=== PATIENT | male | born 1935 | race Caucasian/White ===

== ENCOUNTER 2019-11-23 09:05 | Emergency (ER) | payer MEDICARE, SELFPAY ==
--- NOTE | 2019-11-23 10:11 | EDM.PDOC ---
ED HPI GENERAL MEDICAL PROBLEM - General Chief Complaint: General Stated Complaint: SPEECH SLOW, GETTING SLOWER Time Seen by Provider: 11/23/19 09:45 Source of Information: Reports: Patient History Limitations: Reports: No Limitations - History of Present Illness INITIAL COMMENTS - FREE TEXT/NARRATIVE: Patient states over the last couple of weeks he has been having generalized increased weakness not moving as well as he used to. He has daughters and grandchildren visited this weekend and told him that his color did not look well. He tried calling the clinic to get him this morning but could not secondary to no appointments. He states he cannot pinpoint any one single thing but overall he just feels weak. He takes no medications just [id number] vitamins he does have a history of a bleeding ulcer about 8 years ago which was treated with medication. As he has been eating and drinking normal but only drinking about 2 quarts of water a day and states he probably needs to drink more. He states he is not as active now as he was 6 months ago he tends to take a nap every day that last maybe 30 minutes to an hour which used to he only took 15 to 30 minutes - Related Data Allergies Allergy/AdvReac Type Severity Reaction Status Date / Time ibuprofen AdvReac Bleeding Verified 05/16/17 14:51 NSAIDS (Non-Steroidal AdvReac Bleeding Verified 05/16/17 14:51 Anti-Inflamma Home Meds: Home Meds Acetaminophen [Non-Aspirin Pain Relief] 650 mg PO Q6H 05/16/17 [History] Ascorbic Acid [Vitamin C] 250 mg PO DAILY 05/16/17 [History] Aspirin [Ecotrin] 325 mg PO DAILY 05/16/17 [History] Brimonidine Tartrate [Alphagan P] 1 drop EYELF BID 05/16/17 [History] Cholecalciferol (Vitamin D3) [Vitamin D3] 1,000 unit PO DAILY 05/16/17 [History] [place]-3/DHA/Epa/Fish Oil [[place] 3 500 Softgel] 1,000 mg PO DAILY 05/16/17 [ History] Omeprazole 20 mg PO DAILY 05/16/17 [History] Polyethylene Glycol [Polyox Wsr-301] 1 packet PO DAILY 05/16/17 [History] Tafluprost/Pf [Zioptan 0.0015% Eye Drops] 1 each OP BEDTIME 05/16/17 [History] oxyCODONE 5 mg PO Q4H PRN 05/16/17 [History] traMADol [Ultram] 50 mg PO Q6H PRN 05/16/17 [History] Cephalexin [IJD: Cephalexin] 500 mg PO TID 6 Days capsule 05/22/17 [Rx] Past Medical History - Past Health History Medical/Surgical History: Denies Medical/Surgical History Genitourinary History: Reports: BPH Musculoskeletal History: Reports: Arthritis Social & Family History - Family History Family Medical History: Noncontributory - Caffeine Use Caffeine Use: Reports: Tea ED ROS GENERAL - Review of Systems Review Of Systems: See Below Constitutional: Reports: Weakness. Denies: Fever, Chills, Malaise, Fatigue, Night Sweats, Diaphoresis, Decreased Appetite, Weight Loss, Weight Gain HEENT: Reports: No Symptoms Respiratory: Reports: No Symptoms Cardiovascular: Reports: Dyspnea on Exertion, Edema, Other (Patient states over the last week or so that he has noticed some swelling in his ankles around his sock line when asked about dyspnea on exertion he said he used to could walk across the room which is about 25 feet with no issues now he says I do get a little short of breath and have to rely on my cane a little more). Denies: No Symptoms, Chest Pain, Blood Pressure Problem, Claudication, Lightheadedness, Orthopnea, Palpitations, PND, Syncope Endocrine: Reports: No Symptoms GI/Abdominal: Reports: No Symptoms. Denies: Abdominal Pain, Black Stool, Bloody Stool, Constipation, Diarrhea, Difficulty Swallowing, Hematemesis, Hematochezia, Melena, Nausea, Stool Incontinence : Reports: Other (Nocturia 1-2 times a night normal for the last 10 years) Musculoskeletal: Reports: No Symptoms Skin: Reports: No Symptoms Neurological: Reports: Weakness. Denies: Confusion, Dizziness, Headache, Numbness, Paresthesia, Pre-Existing Deficit, Seizure, Syncope, Tingling, Trouble Speaking, Change in Speech Psychiatric: Reports: No Symptoms Hematologic/Lymphatic: Reports: No Symptoms Immunologic: Reports: No Symptoms ED EXAM, GENERAL - Physical Exam Exam: See Below Exam Limited By: No Limitations General Appearance: Alert, WD/WN, No Apparent Distress, Other (Alert and oriented x4 carries a normal conversation answers all questions appropriately) Eye Exam: Bilateral Eye: EOMI, PERRL Ears: Normal External Exam, Normal Canal, Hearing Grossly Normal, Normal TMs Nose: Normal Inspection, No Blood Throat/Mouth: Normal Inspection, Normal Lips, Normal Teeth, Normal Gums, Normal Oropharynx, Normal Voice, No Airway Compromise Head: Atraumatic, Normocephalic Neck: Normal Inspection, Supple, Non-Tender, Full Range of Motion Respiratory/Chest: No Respiratory Distress, Lungs Clear, Normal Breath Sounds, No Accessory Muscle Use, Chest Non-Tender Cardiovascular: Normal Peripheral Pulses, Regular Rate, Rhythm, No Gallop, No JVD, No Murmur, No Rub, Other (Patient has +1 bilateral pedal edema). No: No Edema GI/Abdominal: Normal Bowel Sounds, Soft, Non-Tender, No Organomegaly, No Distention. No: Guarding, Rigid, Rebound, Tender Back Exam: Normal Inspection, Full Range of Motion Extremities: Normal Inspection, Normal Range of Motion, Non-Tender, No Pedal Edema, Normal Capillary Refill Neurological: Alert, Oriented, CN II-XII Intact, Normal Cognition, Normal Gait, Normal Reflexes, No Motor/Sensory Deficits Psychiatric: Normal Affect, Normal Mood Skin Exam: Warm, Dry, Intact, Normal Color, No Rash Lymphatic: No Adenopathy Course - Vital Signs Text/Narrative:: CBC BMP within normal limits urine shows trace leuks with white blood cells after speaking with the she says he has been having some urinary signs or symptoms but is not really see anything to anybody about it such as increased frequency and leaking We will try a course of 5-day treatment with Levaquin 750 daily also start patient on Flomax 1 p.o. nightly and having follow-up with Mona Olivas for recheck and a full physical exam within the next week Patient has a video follow-up with primary care provider Mona Friday at 2 PM I spoke with the sales receptionist she will try to get it changed to a regular office visit and let the patient and his family know - Orders/Labs/Meds Orders: Active Orders 24 hr Category Date Time Status EKG Documentation Completion [RC] AM Care 11/23/19 10:04 Active CULTURE URINE [RM] Stat Lab 11/23/19 10:20 Received Labs: Laboratory Tests 11/23/19 11/23/19 11/23/19 Range/Units 10:20 10:25 10:25 WBC 7.7 (4.0-10.0) x10^3/uL RBC 4.50 (4.5-6.0) x10^6/uL Hgb 14.6 D (14.0-18.0) g/dL Hct 42.1 (40.0-52.0) % MCV 93.6 H (78.0-93.0) fL MCH 32.4 H (26.0-32.0) pg MCHC 34.7 (32.0-36.0) g/dL RDW Coeff of Elida 13.4 (10.0-15.0) % Plt Count 246 D (130-400) x10^3/uL Neut % (Auto) 63.3 (50.0-80.0) % Lymph % (Auto) 26.5 (25.0-50.0) % [place] % (Auto) 8.2 (2.0-11.0) % Eos % (Auto) 1.6 (0.0-4.0) % Baso % (Auto) 0.4 (0.2-1.2) % Sodium 141 (136-145) mmol/L Potassium 3.8 (3.5-5.1) mmol/L Chloride 106 (98-107) mmol/L Carbon Dioxide 21 (21-32) mmol/L Anion Gap 17.8 (10-20) mmol/L BUN 15 (7-18) mg/dL Creatinine 0.7 (0.70-1.30) mg/dL Est Cr Clr Drug Dosing TNP Estimated GFR (MDRD) > 60 Glucose 106 (74-106) mg/dL Calcium 8.8 (8.5-10.1) mg/dL Urine Color Yellow (YELLOW) Urine Appearance Slightly cloudy H (CLEAR) Urine pH 5.0 (5.0-8.0) Ur Specific [place] 1.020 Urine Protein Negative (NEGATIVE) mg/dL Urine Glucose (UA) Negative (NEGATIVE) mg/dL Urine Ketones Negative (NEGATIVE) mg/dL Urine Occult Blood Negative (NEGATIVE) Urine Nitrite Negative (NEGATIVE) Urine Bilirubin Negative (NEGATIVE) Urine Urobilinogen 0.2 (0.2) EU/dL Ur Leukocyte Esterase Small H (NEGATIVE) Urine RBC 0-5 (NOT SEEN) /HPF Urine WBC 10-20 H (NOT SEEN) /HPF Ur Squamous Epith Cells Occasional H (NEGATIVE) /HPF Urine Bacteria Rare (NEGATIVE) /HPF Urine Mucus Occasional H (NEGATIVE) /LPF Departure - Departure Time of Disposition: 11:50 Disposition: Home, Self-Care 01 Condition: Good Clinical Impression: UTI (urinary tract infection), Weakness - Discharge Information *PRESCRIPTION DRUG MONITORING PROGRAM REVIEWED*: No *COPY OF PRESCRIPTION DRUG MONITORING REPORT IN PATIENT CARSON: No Instructions: Urinary Tract Infection, Adult Referrals: Ruth Nova, [Primary Care Provider] - Forms: ED Department Discharge Additional Instructions: Make sure you drink 3 to 4 quarts of water a day Take the antibiotic Levaquin 750 mg 1 p.o. daily for 5 days until finished Start the Flomax 0.4 mg 1 p.o. at bedtime #30 make sure that you are aware that this can cause a little bit low blood pressure Follow-up with Mona in the next 3 to 5 days Return to the emergency room if anything changes or gets worse Sepsis Event Note - Focused Exam Date Exam was Performed: 11/23/19 Time Exam was Performed: 16:16 - Problem List & Annotations (1) Weakness SNOMED Code(s): 22015452 Code(s): R53.1 - WEAKNESS Status: Acute Current Visit: Yes (2) UTI (urinary tract infection) SNOMED Code(s): 75440017 Code(s): N39.0 - URINARY TRACT INFECTION, SITE NOT SPECIFIED Status: Acute Current Visit: Yes - My Orders Last 24 Hours: My Active Orders 11/23/19 10:04 EKG Documentation Completion [RC] AM 11/23/19 10:20 CULTURE URINE [RM] Stat - Assessment/Plan Last 24 Hours: My Active Orders 11/23/19 10:04 EKG Documentation Completion [RC] AM 11/23/19 10:20 CULTURE URINE [RM] Stat
--- NOTE | 2019-11-23 10:46 | CR ---
[id number] RAD/RAD Chest PA And Lateral EXAM: RAD Chest PA And Lateral INDICATION: WEAKNESS. COMPARISON: None. DISCUSSION: Cardiomediastinal silhouette is normal in size and contour. No infiltrate, effusion, pneumothorax, or edema. Pulmonary hyperinflation. IMPRESSION: No acute cardiopulmonary abnormality. Sebastián Alexander DO 11/23/19 1045 Thank you for allowing us to participate in the care of your patient.
[2019-11-23 10:50] LABS: CHLORIDE,CL 106 mmol/L (98-107); SODIUM,NA 141 mmol/L (136-145)
[2019-11-23 10:57] LABS: ANION GAP 17.8 mmol/L (10-20)
== END 2019-11-23 13:05 | disposition home or self-care (01) ==
LOC: VM.ED 09:05
DX: N39.0 Urinary tract infection, site not specified (principal); M19.90 Unspecified osteoarthritis, unspecified site; Z79.82 Long term (current) use of aspirin; Z79.899 Other long term (current) drug therapy; Z88.6 Allergy status to analgesic agent; Z88.8 Allergy status to other drugs, medicaments and biological substances
CPT/HCPCS: 36415; 71046; 80048; 81001; 85025; 87086; 93005; 99283-GF; 99285-25

== ENCOUNTER 2020-12-28 13:14 | Emergency (ER) | payer MEDICARE, OTHER ==
[2020-12-28] MEDS ORDERED: Furosemide 40 MG/4 ML VIAL ONE (14:12)
[2020-12-28] MEDS ORDERED: cefTRIAXone 1 GM Vial ONE (14:12)
[2020-12-28] MEDS ORDERED: cefTRIAXone 1 GM Vial IVPUSH ONE (14:45)
[2020-12-28] MEDS ORDERED: Furosemide 40 MG/4 ML VIAL IV ONE (14:45)
[2020-12-28 14:58] LABS: CHLORIDE,CL 102 mmol/L (98-107); SODIUM,NA 137 mmol/L (136-145)
[2020-12-28 14:59] LABS: ANION GAP 15.8 mmol/L (5-15)
--- NOTE | 2020-12-28 15:06 | EDM.PDOC ---
ED HPI GENERAL MEDICAL PROBLEM - General Chief Complaint: Cardiovascular Problem Stated Complaint: HEART PROBLEMS Time Seen by Provider: 12/28/20 13:20 Source of Information: Reports: Patient History Limitations: Reports: No Limitations - History of Present Illness INITIAL COMMENTS - FREE TEXT/NARRATIVE: Patient comes emergency department today with complaints of bilateral lower extremity edema. Patient has a history of paroxysmal atrial fibrillation, left ventricular hypertrophy and large right ventricle and right bundle branch block obesity long-term anticoagulation on Eliquis. This patient noticed about 2 weeks ago that he had increasing bilateral equal pedal edema. He typically is on Lasix 20 mg daily. For about 4 to 5 days he increase his Lasix to 40 mg a day. This helped with the bilateral pedal edema quite a bit. Although when the edema was much worse he sustained breaks in the skin on the soles of bilateral feet which is typical for him when the edema gets very bad. The edema bilaterally has improved although it is much more noticeable on the left leg and the right leg. He has had increased swelling and pain to his left leg. Redness and soreness with ambulation. He has not missed any recent doses of his Eliquis. He is also complaining of some shortness of breath with physical exertion more than he typically would have. He has had no chest pain palpitations weakness dizziness lightheadedness. No syncope. He is in paroxysmal atrial fibrillation at times and he has noted that he has been in there somewhat a little bit more recently. Although he has not felt any palpitations or syncope. His tetanus immunization is up-to-date. He denies any fever or chills. He denies any paresthesia of his lower extremities. He denies any recent long stents of travel or sedentary lifestyle. He has no history of DVT or PE. He is on the Eliquis for paroxysmal atrial fibrillation. - Related Data Allergies Allergy/AdvReac Type Severity Reaction Status Date / Time ibuprofen AdvReac Bleeding Verified 12/28/20 14:35 NSAIDS (Non-Steroidal AdvReac Bleeding Verified 12/28/20 14:35 Anti-Inflamma Home Meds: Home Meds Acetaminophen [Non-Aspirin Pain Relief] 650 mg PO Q6H 05/16/17 [History] Ascorbic Acid [Vitamin C] 250 mg PO DAILY 05/16/17 [History] Aspirin [Ecotrin] 325 mg PO DAILY 05/16/17 [History] Brimonidine Tartrate [Alphagan P] 1 drop EYELF BID 05/16/17 [History] Cholecalciferol (Vitamin D3) [Vitamin D3] 1,000 unit PO DAILY 05/16/17 [History] [place]-3/DHA/Epa/Fish Oil [[place] 3 500 Softgel] 1,000 mg PO DAILY 05/16/17 [History] Omeprazole 20 mg PO DAILY 05/16/17 [History] Polyethylene Glycol [Polyox Wsr-301] 1 packet PO DAILY 05/16/17 [History] Tafluprost/Pf [Zioptan 0.0015% Eye Drops] 1 each OP BEDTIME 05/16/17 [History] oxyCODONE 5 mg PO Q4H PRN 05/16/17 [History] traMADol [Ultram] 50 mg PO Q6H PRN 05/16/17 [History] Cephalexin [IJD: Cephalexin] 500 mg PO TID 6 Days capsule 05/22/17 [Rx] Past Medical History - Past Health History Medical/Surgical History: Denies Medical/Surgical History Genitourinary History: Reports: BPH Musculoskeletal History: Reports: Arthritis Social & Family History - Family History Family Medical History: No Pertinent Family History - Tobacco Use Tobacco Use Status *Q: Unknown Ever Used Tobacco - Caffeine Use Caffeine Use: Reports: Tea ED ROS GENERAL - Review of Systems Review Of Systems: Comprehensive ROS is negative, except as noted in HPI. ED EXAM, GENERAL - Physical Exam Exam: See Below Exam Limited By: No Limitations General Appearance: Alert, WD/WN, No Apparent Distress Ears: Normal External Exam Nose: Normal Inspection Throat/Mouth: Normal Inspection, Normal Oropharynx Head: Atraumatic, Normocephalic Neck: Normal Inspection, Supple, Non-Tender, Full Range of Motion Respiratory/Chest: No Respiratory Distress, No Accessory Muscle Use, Chest Non- Tender, Crackles (He does have crackles in the bilateral bases. No increased work of breathing.) Cardiovascular: Normal Peripheral Pulses, Regular Rate, Rhythm Peripheral Pulses: 1+: Posterior Tibial (L), Posterior Tibial (R), Dorsalis Pedis (L), Dorsalis Pedis (R), 2+: Radial (L), Radial (R) GI/Abdominal: Normal Bowel Sounds, Soft, Non-Tender Back Exam: Normal Inspection Extremities: Normal Capillary Refill, Pedal Edema (There is 2+ pedal edema not pitting to the left lower extremity about almost to the knee. There is scant pedal edema to the right lower extremity. The left anterior pretty much most of the calf is erythematous red hot and very tender to palpation throughout. ), Increased Warmth, Other (There is multiple areas of cracked skin on his feet that are peeling these are noninfectious appearing. He has a negative Homans' sign to the right and a positive Homans' sign to the left.). No: Normal Inspection Neurological: Alert, Oriented, Normal Cognition, No Motor/Sensory Deficits Psychiatric: Normal Affect, Normal Mood Course - Vital Signs Last Recorded V/S: Last Vital Signs Temp 97.6 F 12/28/20 17:45 Pulse 61 12/28/20 17:45 Resp 16 12/28/20 17:45 BP 132/78 12/28/20 17:45 Pulse Ox 97 12/28/20 17:45 - Orders/Labs/Meds Orders: Active Orders 24 hr Category Date Time Status Chest 1V Frontal [CR] Stat Exams 12/28/20 14:46 Taken Labs: Laboratory Tests 12/28/20 12/28/20 12/28/20 Range/Units 13:55 13:55 13:55 WBC 7.3 (4.0-10.0) x10^3/uL RBC 4.40 L (4.5-6.0) x10^6/uL Hgb 14.6 (14.0-18.0) g/dL Hct 41.4 (40.0-52.0) % MCV 94.1 H (78.0-93.0) fL MCH 33.2 H (26.0-32.0) pg MCHC 35.3 (32.0-36.0) g/dL RDW Coeff of Elida 13.1 (10.0-15.0) % Plt Count 229 (130-400) x10^3/uL Neut % (Auto) 62.2 (50.0-80.0) % Lymph % (Auto) 22.7 L (25.0-50.0) % [place] % (Auto) 11.1 H (2.0-11.0) % Eos % (Auto) 3.3 (0.0-4.0) % Baso % (Auto) 0.7 (0.2-1.2) % D-Dimer, Quantitative (<=0.58) mg/LFEU Sodium 137 (136-145) mmol/L Potassium 3.8 (3.5-5.1) mmol/L Chloride 102 (98-107) mmol/L Carbon Dioxide 23 (21-32) mmol/L Anion Gap 15.8 H (5-15) mmol/L BUN 15 (7-18) mg/dL Creatinine 0.8 (0.70-1.30) mg/dL Est Cr Clr Drug Dosing TNP Estimated GFR (MDRD) > 60 Glucose 115 H (70-99) mg/dL Lactic Acid 1.3 (0.4-2.0) mmol/L Calcium 8.6 (8.5-10.1) mg/dL Corrected Calcium 8.9 (8.5-10.1) mg/dL Total Bilirubin 0.6 (0.2-1.0) mg/dL AST 31 (15-37) U/L ALT 39 (16-63) U/L Alkaline Phosphatase 65 (46-116) U/L Troponin I High Sens 7 (<=76) ng/L C-Reactive Protein 1.2 H (<=0.9) mg/dL NT-Pro-B Natriuret Pep 273 (<=450) pg/mL Total Protein 7.6 (6.4-8.2) g/dL Albumin 3.6 (3.4-5.0) g/dL Globulin 4.0 Albumin/Globulin Ratio 0.90 12/28/20 Range/Units 13:55 WBC (4.0-10.0) x10^3/uL RBC (4.5-6.0) x10^6/uL Hgb (14.0-18.0) g/dL Hct (40.0-52.0) % MCV (78.0-93.0) fL MCH (26.0-32.0) pg MCHC (32.0-36.0) g/dL RDW Coeff of [place] (10.0-15.0) % Plt Count (130-400) x10^3/uL Neut % (Auto) (50.0-80.0) % Lymph % (Auto) (25.0-50.0) % [place] % (Auto) (2.0-11.0) % Eos % (Auto) (0.0-4.0) % Baso % (Auto) (0.2-1.2) % D-Dimer, Quantitative 0.62 H (<=0.58) mg/LFEU Sodium (136-145) mmol/L Potassium (3.5-5.1) mmol/L Chloride (98-107) mmol/L Carbon Dioxide (21-32) mmol/L Anion Gap (5-15) mmol/L BUN (7-18) mg/dL Creatinine (0.70-1.30) mg/dL Est Cr Clr Drug Dosing Estimated GFR (MDRD) Glucose (70-99) mg/dL Lactic Acid (0.4-2.0) mmol/L Calcium (8.5-10.1) mg/dL Corrected Calcium (8.5-10.1) mg/dL Total Bilirubin (0.2-1.0) mg/dL AST (15-37) U/L ALT (16-63) U/L Alkaline Phosphatase (46-116) U/L Troponin I High Sens (<=76) ng/L C-Reactive Protein (<=0.9) mg/dL NT-Pro-B Natriuret Pep (<=450) pg/mL Total Protein (6.4-8.2) g/dL Albumin (3.4-5.0) g/dL Globulin Albumin/Globulin Ratio Meds: Medications Discontinued Medications Generic Name Dose Route Start Last Admin Trade Name Freq PRN Reason Stop Dose Admin Ceftriaxone Sodium Confirm 12/28/20 14:12 Ceftriaxone 1 Gm Vial Administered 12/28/20 14:13 Dose 1 gm .ROUTE .STK-MED ONE Ceftriaxone Sodium 1 gm 12/28/20 14:45 12/28/20 14:10 Ceftriaxone 1 Gm Vial IVPUSH 12/28/20 14:46 1 gm STAT ONE Administration Furosemide Confirm 12/28/20 14:12 Furosemide 40 Mg/4 Ml Vial Administered 12/28/20 14:13 Dose 40 mg .ROUTE .STK-MED ONE Furosemide 40 mg 12/28/20 14:45 12/28/20 14:06 Furosemide 40 Mg/4 Ml Vial IV 12/28/20 14:46 40 mg ONETIME ONE Administration Iopamidol 100 ml 12/28/20 15:34 12/28/20 16:18 Iopamidol 612 Mg/Ml 100 Ml Bottle IVPUSH 12/28/20 15:35 100 ml ONETIME ONE Administration - Radiology Interpretation Free Text/Narrative:: Chest x-ray per radiology shows no infiltrate effusion pneumothorax or edema. Pulmonary hyperinflation. CTA of the chest due to elevated D-dimer shortness of breath. Negative for pulmonary embolus or other acute findings in the chest. Mild amount of dependent atelectasis in both lungs. No evidence of parenchymal consolidation. No pleural effusion or pneumothorax. - Re-Assessments/Exams Free Text/Narrative Re-Assessment/Exam: 12/28/20 15:04 Initially an IV was established labs are drawn. EKG was completed shows a normal sinus rhythm without any ST elevation when reviewed extemporaneously by myself. Right bundle branch block which is chronic. The patient was given 40 mg of Lasix IV push. Ceftriaxone 1 g IV push. POCUS for a left DVT completed and reviewed extemporaneously by myself with no signs of a DVT. Although the patient does have an elevated D-Dimer and with the CP SOB we will complete a PE scan of the chest. His laboratory evaluation is rather unremarkable. He has a normal white blood cell count. Minimally elevated CRP at 1.2. Normal lactic acid. Normal proBNP. Minimally elevated D-dimer at 0.6. His troponin is normal. Patient diuresed quite well in the emergency department. He actually had quite a bit of improvement of the bilateral edema. CTA of his chest is negative for pulmonary embolism. He has had no chest pain or shortness of breath while he is in the emergency department. I did complete a POCUS at the bedside completed and reviewed extemporaneously by myself and I do not identify any sites of a DVT in the left lower extremity. He is also on Eliquis 5 mg twice a day which would be the treatment for it either way. He does not have any PEs. His troponin is normal. His proBNP is normal although he has some crackles in his lungs. I will keep his Lasix at the same dose at this time as his chest x-ray does not show any edema nor his proBNP is elevated. I think this is really a cellulitis of the left lower extremity from the cracks in his fever bacteria is entered. He was given a dose of Rocephin in the emergency department. I will place him on Keflex for the next 10 days. Anything new or worse especially developing of chest pain or his redness is not improving he should recheck. He does have a primary care provider visit on Friday which will be a great time to revisit ensure that his cellulitis is improving. Discharge directions as below are explained to the patient he was comfortable with this plan and his questions were answered. 12/28/20 21:54 Departure - Departure Time of Disposition: 17:45 Disposition: Home, Self-Care 01 Clinical Impression: Cellulitis of left lower extremity, group home current use of anticoagulant therapy, SOB (shortness of breath) on exertion Instructions: Shortness of Breath, Adult, [id number], Cellulitis, Adult, [id number] Referrals: Ruth Nova DO [Primary Care Provider] - Forms: ED Department Discharge Additional Instructions: Continue with your previous lasix dosing. Continue your other previous medications. Start Cephalexin 1 tablet 4 times a day for the next 7 days. RX sent to [facility] please start this on 12/29/20. Keep your feet elevated at the level of your heart or higher. Follow up with Dr. Nova on Friday as please. Consider a stress test on Friday with Dr. Nova if continued symptoms of SOB. Return to the ED if new or worsening symptoms. Sepsis Event Note (ED) - Evaluation Sepsis Screening Result: No Definite Risk - Focused Exam Vital Signs: Vital Signs Temp Pulse Resp BP Pulse Ox 12/28/20 17:45 97.6 F 61 16 132/78 97 12/28/20 13:18 98.2 F 57 L 16 143/68 H 95 - My Orders Last 24 Hours: My Active Orders 12/28/20 14:46 Chest 1V Frontal [CR] Stat - Assessment/Plan Last 24 Hours: My Active Orders 12/28/20 14:46 Chest 1V Frontal [CR] Stat
[2020-12-28] MEDS ORDERED: Iopamidol 612 MG/ML 100 ML Bottle IVPUSH ONE (15:34)
--- NOTE | 2020-12-28 17:06 | CT ---
[id number] CT/CTA Chest EXAM: CTA Chest CLINICAL DATA: CHEST PAIN, SHORTNESS OF BREATH, ELEVATED D-DIMER. COMPARISON STUDY: Radiograph from today. FINDINGS: Lungs: Mild amount of dependent atelectasis in both lungs. No evidence of parenchymal consolidation. No pleural effusion or pneumothorax. Mediastinum: No mediastinal or hilar lymphadenopathy. Heart and great vessels: Mild cardiomegaly. Coronary artery atherosclerosis. Pericardial effusion. Thoracic aorta atherosclerosis. No aneurysm. Patient respiratory motion artifact accounts for apparent filling defect within subsegmental branches of the right upper lobe pulmonary artery distribution. Bones: No acute fracture or compression deformity. Spondylosis. Upper abdomen: Sliding-type hiatus hernia. Otherwise unremarkable. IMPRESSION: Negative for pulmonary embolus or other acute findings in the chest. Chronic findings are described above. Mark Staton MD 12/28/20 [id number] Thank you for allowing us to participate in the care of your patient.
[2020-12-28 18:34] VITALS: BP 132/78; PULSE 61
--- NOTE | 2020-12-30 08:40 | CR ---
[id number] RAD/RAD Chest PA or AP 1V EXAM: RAD Chest PA or AP 1V INDICATION: SHORTNESS OF BREATH. COMPARISON: None. DISCUSSION: Cardiomediastinal silhouette is normal in size and contour. No infiltrate, effusion, pneumothorax, or edema. Pulmonary hyperinflation. IMPRESSION: No acute cardiopulmonary abnormality. Sebastián Alexander DO 12/30/20 0839 Thank you for allowing us to participate in the care of your patient.
== END 2020-12-28 18:00 | disposition home or self-care (01) ==
LOC: VM.ED 13:14
DX: L03.116 Cellulitis of left lower limb (principal); R06.02 Shortness of breath; Z79.01 Long term (current) use of anticoagulants; Z79.82 Long term (current) use of aspirin; Z88.8 Allergy status to other drugs, medicaments and biological substances
CPT/HCPCS: 71045; 71275; 80053; 83605; 83880; 84484; 85025; 85379; 86140; 93005; 96374; 96375; 99285; J0696; J1940; Q9967

== ENCOUNTER 2021-04-08 19:14 | Emergency (ER) | payer MEDICARE, OTHER ==
[2021-04-08 19:34] VITALS: BP 170/86
--- NOTE | 2021-04-08 19:51 | EDM.PDOC ---
ED HPI GENERAL MEDICAL PROBLEM - General Chief Complaint: Headache Stated Complaint: HANNA Time Seen by Provider: 04/08/21 19:20 Source of Information: Reports: Patient, Family History Limitations: Reports: No Limitations - History of Present Illness INITIAL COMMENTS - FREE TEXT/NARRATIVE: Patient states approximate hour ago when he stood up after eating supper to walk to the living room he had a sudden sharp headache hit him that he rates about a 8 out of 10 in the back of his head going to the front and down the back of his neck. He says that he has been having some small intermittent headaches throughout the week that went away with Tylenol. But this 1 is a little bit different and has not eased up. His also checked his blood pressure noticed it was elevated and brought him to the emergency room. Patient states that he does not have headaches frequently but has been having some blood pressure issues over the last couple of weeks. He is recently started spironolactone secondary to some pedal edema. He was seen by his lead nitrate processor approximately 3 weeks ago where he had a normal cardiac cath and a normal checkup except for the edema. He is taking metoprolol 100 mg every a.m. but does not take anything at night. He says other than this on the side of the headache he felt fine all day and has felt good all week with no issues and he has no other complaints at this time. Patient is currently on Eliquis 5 mg twice daily No strokes in the family history he has no complaints of chest pain shortness of breath vision changes urinary issues Duration: Hour(s): Location: Reports: Head Severity: Severe Improves with: Reports: None Worsens with: Reports: None Associated Symptoms: Reports: No Other Symptoms Treatments EEG TECHNOLOGIST: Denies: Acetaminophen, Aspirin, NSAIDS Headache Pain Score (Numeric/FACES): 8 - Related Data Allergies Allergy/AdvReac Type Severity Reaction Status Date / Time ibuprofen AdvReac Bleeding Verified 04/08/21 19:28 NSAIDS (Non-Steroidal AdvReac Bleeding Verified 04/08/21 19:28 Anti-Inflamma Home Meds: Home Meds Acetaminophen [Non-Aspirin Pain Relief] 650 mg PO Q6H 05/16/17 [History] Ascorbic Acid [Vitamin C] 250 mg PO DAILY 05/16/17 [History] Aspirin [Ecotrin] 325 mg PO DAILY 05/16/17 [History] Brimonidine Tartrate [Alphagan P] 1 drop EYELF BID 05/16/17 [History] Cholecalciferol (Vitamin D3) [Vitamin D3] 1,000 unit PO DAILY 05/16/17 [History] [place]-3/DHA/Epa/Fish Oil [[place] 3 500 Softgel] 1,000 mg PO DAILY 05/16/17 [History] Omeprazole 20 mg PO DAILY 05/16/17 [History] Polyethylene Glycol [Polyox Wsr-301] 1 packet PO DAILY 05/16/17 [History] Tafluprost/Pf [Zioptan 0.0015% Eye Drops] 1 each OP BEDTIME 05/16/17 [History] oxyCODONE 5 mg PO Q4H PRN 05/16/17 [History] traMADol [Ultram] 50 mg PO Q6H PRN 05/16/17 [History] Cephalexin [IJD: Cephalexin] 500 mg PO TID 6 Days capsule 05/22/17 [Rx] Past Medical History - Past Health History Medical/Surgical History: Denies Medical/Surgical History Cardiovascular History: Reports: Afib, Hypertension Genitourinary History: Reports: BPH Musculoskeletal History: Reports: Arthritis Social & Family History - Family History Family Medical History: No Pertinent Family History - Tobacco Use Tobacco Use Status *Q: Never Tobacco User - Caffeine Use Caffeine Use: Reports: Tea ED ROS GENERAL - Review of Systems Review Of Systems: See Below Constitutional: Reports: No Symptoms HEENT: Reports: No Symptoms Respiratory: Reports: No Symptoms Cardiovascular: Reports: No Symptoms Endocrine: Reports: No Symptoms GI/Abdominal: Reports: No Symptoms : Reports: No Symptoms Musculoskeletal: Reports: No Symptoms Skin: Reports: No Symptoms Neurological: Reports: Headache. Denies: Confusion, Dizziness, Numbness, Paresthesia, Pre-Existing Deficit, Seizure, Syncope, Tingling, Tremors, Trouble Speaking, Difficulty Walking, Weakness Psychiatric: Reports: No Symptoms Hematologic/Lymphatic: Reports: No Symptoms Immunologic: Reports: No Symptoms - Physical Exam Exam: See Below Exam Limited By: No Limitations General Appearance: Alert, WD/WN, No Apparent Distress Eye Exam: Bilateral Eye: EOMI, Normal Fundi, Normal Inspection, PERRL Ears: Normal External Exam, Normal Canal, Hearing Grossly Normal, Normal TMs Nose: Normal Inspection, Normal Mucosa Throat/Mouth: Normal Inspection, Normal Lips, Normal Teeth, Normal Gums, Normal Oropharynx, Normal Voice, No Airway Compromise Head Exam: Atraumatic, Normocephalic. No: Scalp Tenderness, Sinus Tenderness Neck: Normal Inspection, Supple, Non-Tender, Full Range of Motion Respiratory/Chest: No Respiratory Distress, Lungs Clear, Normal Breath Sounds, No Accessory Muscle Use, Chest Non-Tender Cardiovascular: Normal Peripheral Pulses, Regular Rate, Rhythm, No Edema, No Gallop, No JVD, No Murmur, No Rub GI/Abdominal: Normal Bowel Sounds, Soft, Non-Tender, No Organomegaly, No Distention Neuro Exam (Abbreviated): Alert, Oriented, CN II-XII Intact, Normal Cognition, Normal Gait, Normal Reflexes, No Motor/Sensory Deficits, Other (There is no noted neuro deficits patient's and has equal bilateral facial sensation to soft touch strength 5 of 5 upper extremity lower extremity bilateral equal planting material unloader no pronator drift ) Back Exam: Normal Inspection, Full Range of Motion Extremities: Normal Inspection, Normal Range of Motion, Non-Tender, No Pedal Edema, Normal Capillary Refill Psychiatric: Normal Affect, Normal Mood Skin Exam: Warm, Dry, Intact, Normal Color, No Rash Course - Vital Signs Text/Narrative:: CT head EKG urinalysis Metoprolol 25 mg Lortab 5 mg we will check to see if this decreases headache and also lowers patient's blood pressure [facility] bilateral anterior temporal hemorrhages most likely subarachnoid at [address] Chavez neurosurgeon no ICU beds available Called [facility] [address] report call us back 2nd no ICU beds but will try to shift around call warehouse stock clerk Called [facility] spoke with Dr Kan Neurosurg no beds [facility] called back at [address] Camacho states he will accept the patient for transfer through the ER recommend that we give reversal for Eliquis if we have it if not send the patient recommended that we use labetalol IV keep systolic under 140 Patient had episode of posturing approximately 20 to 30 seconds then went pulseless CPR was started patient regained pulse within 45 seconds became conscious then had episodes of snoring patient was RSI patient remained stable after normotensive good O2 sat I called and gave [facility] and neurosurgical progress on the patient afterwards patient was transported via EMS to [facility]. Spoke with the pharmacist Hali at [facility] in regards to antireversal agent she said 2000 units x 1 dose over 10 minutes medication was given in the right AC IV Procedure for intubation first attempt 7 tube unsuccessful second attempt with 6.5 successful good mist in the tube equal breath sounds bilateral good Plath on monitor confirmed with chest x-ray patient remained 95% sat being bagged good vital signs etomidate and succinylcholine was used patient was given Versed and propofol drip afterwards and remained stable till transported Total critical care time 1 hour 15 minutes Last Recorded V/S: Last Vital Signs Temp 37.0 C 04/08/21 19:14 Pulse 72 04/08/21 19:14 Resp 18 04/08/21 19:14 BP 170/86 H 04/08/21 19:14 Pulse Ox 97 04/08/21 19:14 - Orders/Labs/Meds Orders: Active Orders 24 hr Category Date Time Status EKG 12 Lead [EKG Documentation Completion] [RC] STAT Care 04/08/21 19:42 Active CTA Head W & W/O Contrast [Ang Head] [CT] Stat Exams 04/08/21 21:49 Ordered Chest 1V Frontal [CR] Stat Exams 04/08/21 22:48 Ordered Head wo Cont [CT] Stat Exams 04/08/21 19:42 Taken D-DIMER QUANTITATIVE [COAG] Stat Lab 04/08/21 22:39 Received INR,PT,PROTHROMBIN TIME [COAG] Stat Lab 04/08/21 22:39 Received LACTIC ACID [CHEM] Stat Lab 04/08/21 22:39 Received PTT,PARTIAL THROMBOPLSTIN TIME [COAG] Stat Lab 04/08/21 22:39 Received UA W/O MICR POC [POC] Routine Lab 04/08/21 19:43 Ordered Labs: Laboratory Tests 04/08/21 04/08/21 Range/Units 20:05 22:39 WBC 9.9 (4.0-10.0) x10^3/uL RBC 4.59 (4.5-6.0) x10^6/uL Hgb 15.0 (14.0-18.0) g/dL Hct 44.1 (40.0-52.0) % MCV 96.1 H (78.0-93.0) fL MCH 32.7 H (26.0-32.0) pg MCHC 34.0 (32.0-36.0) g/dL RDW Coeff of Elida 13.2 (10.0-15.0) % Plt Count 293 (130-400) x10^3/uL Immature Gran % (Auto) 0.30 (0.00-0.43) % Neut % (Auto) 54.0 (50.0-80.0) % Lymph % (Auto) 34.0 (25.0-50.0) % Foster % (Auto) 8.5 (2.0-11.0) % Eos % (Auto) 2.6 (0.0-4.0) % Baso % (Auto) 0.6 (0.2-1.2) % Neut # (Auto) 5.4 (1.8-7.7) x10^3/uL Lymph # (Auto) 3.4 (1.0-4.8) x10^3/uL Foster # (Auto) 0.8 (0.0-0.8) x10^3/uL Eos # (Auto) 0.3 (0.0-0.5) x10^3/uL Baso # (Auto) 0.1 (0.0-0.2) x10^3/uL Immature Gran # (Auto) 0.03 (0.00-0.07) x10^3/uL Sodium 130 L (136-145) mmol/L Potassium 4.6 (3.5-5.1) mmol/L Chloride 97 L (98-107) mmol/L Carbon Dioxide 26 (21-32) mmol/L Anion Gap 11.6 (5-15) mmol/L BUN 12 (7-18) mg/dL Creatinine 0.8 (0.70-1.30) mg/dL Est Cr Clr Drug Dosing TNP Estimated GFR (MDRD) > 60 Glucose 95 (70-99) mg/dL Calcium 8.3 L (8.5-10.1) mg/dL Meds: Medications Discontinued Medications Generic Name Dose Route Start Last Admin Trade Name Freq PRN Reason Stop Dose Admin Hydrocodone Bitart/Acetaminophen 1 tab 04/08/21 19:43 Acetaminophen/Hydrocodone 325-5 Mg Tab PO 04/08/21 19:44 ONETIME ONE Propofol Confirm 04/08/21 22:45 Diprivan 50 Ml Administered 04/08/21 22:46 Dose 50 mls @ as directed .ROUTE .STK-MED ONE Propofol Confirm 04/08/21 22:54 Diprivan 50 Ml Administered 04/08/21 22:55 Dose 50 mls @ as directed .ROUTE .STK-MED ONE Metoprolol Succinate 25 mg 04/08/21 19:44 Metoprolol Succinate 25 Mg Tab.Er PO 04/08/21 19:45 ONETIME ONE Ondansetron HCl Confirm 04/08/21 22:19 Ondansetron 4 Mg/2 Ml Sdv Administered 04/08/21 22:20 Dose 4 mg .ROUTE .STK-MED ONE Rocuronium [place] Confirm 04/08/21 22:51 Rocuronium 50 Mg/5 Ml Vial Administered 04/08/21 22:52 Dose 100 mg .ROUTE .STK-MED ONE Succinylcholine Chloride Confirm 04/08/21 22:16 Succinylcholine 200 Mg/10 Ml Mdv Administered 04/08/21 22:17 Dose 200 mg .ROUTE .STK-MED ONE Departure - Departure Time of Disposition: 20:50 Disposition: DC/Tfer to [facility] Clinical Impression: Subarachnoid hematoma, HTN (hypertension), Head ache, Intubation of airway performed without difficulty - Discharge Information *PRESCRIPTION DRUG MONITORING PROGRAM REVIEWED*: No *COPY OF PRESCRIPTION DRUG MONITORING REPORT IN PATIENT CARSON: No Referrals: Ruth Nova DO [Primary Care Provider] - Forms: ED Department Discharge, Interfacility Transfer [facility] Sepsis Event Note (ED) - Focused Exam Vital Signs: Vital Signs Temp Pulse Resp BP Pulse Ox 04/08/21 19:14 37.0 C 72 18 170/86 H 97 - Problem List & Annotations (1) HTN (hypertension) SNOMED Code(s): 78612008 Code(s): I10 - ESSENTIAL (PRIMARY) HYPERTENSION Status: Acute Current Visit: Yes (2) Head ache SNOMED Code(s): 42779061 Code(s): R51.9 - HEADACHE, UNSPECIFIED Status: Acute Current Visit: Yes (3) Subarachnoid hematoma SNOMED Code(s): 871673394, 613254011 Code(s): S06.6X9A - TRAUM SUBRAC HEM W LOC OF UNSP DURATION, INIT Status: Acute Current Visit: Yes - My Orders Last 24 Hours: My Active Orders 04/08/21 19:42 EKG 12 Lead [EKG Documentation Completion] [RC] STAT Head wo Cont [CT] Stat 04/08/21 19:43 UA W/O MICR POC [POC] Routine 04/08/21 21:49 CTA Head W & W/O Contrast [Ang Head] [CT] Stat 04/08/21 22:39 D-DIMER QUANTITATIVE [COAG] Stat INR,PT,PROTHROMBIN TIME [COAG] Stat LACTIC ACID [CHEM] Stat PTT,PARTIAL THROMBOPLSTIN TIME [COAG] Stat 04/08/21 22:48 Chest 1V Frontal [CR] Stat - Assessment/Plan Last 24 Hours: My Active Orders 04/08/21 19:42 EKG 12 Lead [EKG Documentation Completion] [RC] STAT Head wo Cont [CT] Stat 04/08/21 19:43 UA W/O MICR POC [POC] Routine 04/08/21 21:49 CTA Head W & W/O Contrast [Ang Head] [CT] Stat 04/08/21 22:39 D-DIMER QUANTITATIVE [COAG] Stat INR,PT,PROTHROMBIN TIME [COAG] Stat LACTIC ACID [CHEM] Stat PTT,PARTIAL THROMBOPLSTIN TIME [COAG] Stat 04/08/21 22:48 Chest 1V Frontal [CR] Stat
[2021-04-08] MEDS: Acetaminophen/HYDROcodone 325-5 MG Tab PO ONE (20:30)
[2021-04-08 20:49] LABS: ANION GAP 11.6 mmol/L (5-15); CHLORIDE,CL 97 mmol/L (98-107); SODIUM,NA 130 mmol/L (136-145)
[2021-04-08] MEDS: Ondansetron 4 MG/2 ML SDV ONE (22:23)
[2021-04-08] MEDS: Etomidate 2 MG/ML 10 ML SDV ONE (22:27)
[2021-04-08] MEDS: Succinylcholine 200 MG/10 ML MDV ONE (22:28)
[2021-04-08] MEDS: Metoprolol Succinate 25 MG Tab.ER PO ONE (22:30)
[2021-04-08] MEDS: Midazolam 1 MG/ML 2 ML SDV ONE (22:46)
[2021-04-08] MEDS: Propofol 200 MG/20 ML SDV ONE (22:47)
[2021-04-08] MEDS: propofoL 50 ML ONE ×2 (22:55→23:45)
[2021-04-08] MEDS ORDERED: Factor IX Complex Human 1,000 UNIT VIAL ONE (23:00)
[2021-04-08 23:16] LABS: PTT,PARTIAL THROMBOPLSTIN TIME 29.2 SEC (25.6-32.8)
[2021-04-09 00:56] VITALS: PULSE 65
[2021-04-09] MEDS: Rocuronium 50 MG/5 ML Vial ONE (02:36)
[2021-04-09] MEDS: Propofol 200 MG/20 ML SDV ONE (02:39)
--- NOTE | 2021-04-09 11:01 | CR ---
[id number] RAD/RAD Chest PA or AP 1V Exam: RAD Chest PA or AP 1V Indication:CODE Comparison: CT from December 28, 2020. Discussion/Impression: Endotracheal tube has been placed. Tip 18 mm above the luz. Borderline cardiomegaly. Central vascular congestion. Parenchymal opacification in the right upper lobe with air bronchograms. Possible subtle opacity in the left upper lobe as well. Imaging appearance is nonspecific. Pulmonary edema should be considered as there are possible trace pleural effusions as well. Mark Staton MD 04/09/21 1037 Thank you for allowing us to participate in the care of your patient.
--- NOTE | 2021-04-09 11:03 | CR ---
[id number] RAD/RAD Chest PA or AP 1V EXAM: RAD Chest PA or AP 1V INDICATION: CODE. COMPARISON: Earlier today at 2240 hours. DISCUSSION/IMPRESSION: Endotracheal tube in place. Tip 30 mm above the luz. Patchy areas of parenchymal opacification bilaterally most prominent in the right upper lobe. Findings are nonspecific and possibly edema. However, atelectasis and pneumonia can demonstrate a similar appearance. Mark Staton MD 04/09/21 [id number] Thank you for allowing us to participate in the care of your patient.
--- NOTE | 2021-04-09 11:15 | CT ---
[id number] CT/CT Head WO IV EXAM: CT Head WO IV CLINICAL DATA: HANNA ON THINNERS. COMPARISON STUDY: None Discussion/impression: Acute extra-axial hemorrhage. Findings are centered adjacent to the suprasellar cistern extending into the middle cranial fossa adjacent to the left temporal lobe. Small amount of hemorrhage extending along the anterior falx as well. Small amount of intraventricular hemorrhage layering dependently in the posterior aspect of both lateral ventricles. Abnormal appearance of the basilar artery near its tip suggests possible aneurysm (series 2 image 13). CT angiography of the brain is recommended No hydrocephalus. No evidence of herniation. Abnormal appearance of the left maxillary sinus, where there is abnormal soft tissue density resulting in bony expansion of the medial wall and infundibulum extending into the nasal cavity and ethmoid air cells. Findings are nonspecific and possibly sequela of chronic sinusitis. However, underlying soft tissue mass could demonstrate similar appearance as well. ENT consultation and direct visualization is recommended. Results of the study related to [place] at time of preliminary read by the radiologist. Mark Staton MD 04/09/21 [id number] Thank you for allowing us to participate in the care of your patient.
== END 2021-04-08 23:45 | disposition short-term general hospital (02) ==
LOC: VM.ED 19:14
DX: I60.9 Nontraumatic subarachnoid hemorrhage, unspecified (principal); I10 Essential (primary) hypertension
CPT/HCPCS: 31500; 36415; 43752; 51702; 70450; 71045; 80048; 83605; 85025; 85379; 85610; 85730; 92950; 93010; 96374; 96375; 99284; 99285-25; 99291-25; J0330; J2250; J2405; J2704; J3490; J7168